=== PATIENT | female | born 1985 | race African-American/Black ===

== ENCOUNTER 2016-11-26 11:50 | Emergency (ER) | payer MEDICAID ==
[~2016-11-26] VITALS: Ht 157.5 cm; Wt 150.0 kg
[2016-11-26] MEDS ORDERED: ALBU18HF2 IH (12:04)
[2016-11-26] MEDS ORDERED: IPRATROPIUM BROMIDE (0.02%) 0.5MG/2.5ML NEB HHN STA (14:04)
[2016-11-26] MEDS ORDERED: PREDNISONE 20MG TABLET PO STA (14:04)
[2016-11-26] MEDS ORDERED: ALBUTEROL (0.083%) 2.5MG/3ML NEB HHN STA (14:04)
[2016-11-26 15:16] LABS: HCG SCREEN NEGATIVE
[2016-11-26 16:42] VITALS: BP 162/112
== END 2016-11-26 17:00 | disposition home or self-care (01) ==
LOC: ER 14:02
DX: J45.909 Unspecified asthma, uncomplicated (principal); Z91.018 Allergy to other foods; Z88.8 Allergy status to other drugs, medicaments and biological substances
CPT/HCPCS: 71010; 84703; 94640; 99285; J7512; J7611; Z7610

== ENCOUNTER 2017-01-19 07:16 | Emergency (ER) | payer MEDICAID ==
[~2017-01-19] VITALS: Ht 157.5 cm; Wt 145.0 kg
[~2017-01-19 07:16] MED LIST: ALBU18HF2 IH
[2017-01-19] MEDS ORDERED: BENA20TA3 PO (07:36)
[2017-01-19] MEDS ORDERED: METHOCARBAMOL 500MG TABLET PO ONE (08:00)
[2017-01-19] MEDS ORDERED: HYDROCODONE/ACETAMINOPHEN 5/325MG TABLET PO ONE (08:00)
[2017-01-19 08:28] VITALS: BP 135/76
[2017-01-19 09:40] LABS: CLARITY URINE CLOUDY (CLEAR); COLOR URINE YELLOW (YELLOW); GLUCOSE URINE NEGATIVE (NEGATIVE); KETONES URINE NEGATIVE (NEGATIVE); LEUKOCYTE ESTERASE URINE NEGATIVE (NEGATIVE); NITRITE URINE NEGATIVE (NEGATIVE); OCCULT BLOOD URINE NEGATIVE (NEGATIVE); PROTEIN URINE NEGATIVE (NEGATIVE); SPECIFIC GRAVITY URINE 1.025 (1.005-1.030); UROBILINOGEN URINE 0.2 E.U./dL (0.2-1.0)
== END 2017-01-19 10:06 | disposition home or self-care (01) ==
LOC: ER 07:37
DX: M54.9 Dorsalgia, unspecified (principal); F41.9 Anxiety disorder, unspecified; I10 Essential (primary) hypertension; Z91.018 Allergy to other foods
CPT/HCPCS: 81001; 81025; 99283; Z7610

== ENCOUNTER 2017-01-27 15:13 | Emergency (ER) | payer MEDICAID ==
[~2017-01-27] VITALS: Ht 157.5 cm; Wt 136.0 kg
[~2017-01-27 15:13] MED LIST changes: +BENA20TA3 PO
[2017-01-27] MEDS ORDERED: ACETAMINOPHEN 325MG TABLET PO ONE (16:15)
[2017-01-27 16:59] LABS: CLARITY URINE CLEAR (CLEAR); COLOR URINE YELLOW (YELLOW); GLUCOSE URINE NEGATIVE (NEGATIVE); KETONES URINE TRACE (NEGATIVE); LEUKOCYTE ESTERASE URINE NEGATIVE (NEGATIVE); NITRITE URINE NEGATIVE (NEGATIVE); OCCULT BLOOD URINE NEGATIVE (NEGATIVE); PROTEIN URINE NEGATIVE (NEGATIVE); SPECIFIC GRAVITY URINE 1.023 (1.005-1.030); UROBILINOGEN URINE 0.2 E.U./dL (0.2-1.0)
[2017-01-27] MEDS ORDERED: IBUPROFEN 600MG TABLET PO ONE (17:30)
[2017-01-27 17:37] VITALS: BP 129/82
== END 2017-01-27 17:50 | disposition home or self-care (01) ==
LOC: ER 16:05
DX: M54.5 Low back pain (principal); I10 Essential (primary) hypertension; J45.909 Unspecified asthma, uncomplicated; G89.29 Other chronic pain; Z91.018 Allergy to other foods
CPT/HCPCS: 81003; 81025; 99283

== ENCOUNTER 2017-03-05 08:54 | Emergency (ER) | payer MEDICAID ==
[~2017-03-05] VITALS: Ht 157.5 cm; Wt 141.0 kg
[2017-03-05] MEDS ORDERED: KETOROLAC 60MG/2ML VIAL IM STA (12:43)
[2017-03-05] MEDS ORDERED: BACITRACIN ZINC OINT UDPKT TOP ONE (12:45)
[2017-03-05] MEDS ORDERED: LIDOCAINE HCL 1% 20ML VIAL (Pyxis) INJ MC ONE (12:45)
[2017-03-05 14:26] LABS: CLARITY URINE CLEAR (CLEAR); COLOR URINE YELLOW (YELLOW); KETONES URINE NEGATIVE (NEGATIVE); LEUKOCYTE ESTERASE URINE NEGATIVE (NEGATIVE); NITRITE URINE NEGATIVE (NEGATIVE); OCCULT BLOOD URINE NEGATIVE (NEGATIVE); PROTEIN URINE NEGATIVE (NEGATIVE); SPECIFIC GRAVITY URINE 1.022 (1.005-1.030); UROBILINOGEN URINE 0.2 E.U./dL (0.2-1.0)
[2017-03-05 15:30] VITALS: BP 130/80
== END 2017-03-05 16:08 | disposition home or self-care (01) ==
LOC: ER 09:40
DX: L02.411 Cutaneous abscess of right axilla (principal); I10 Essential (primary) hypertension; J45.909 Unspecified asthma, uncomplicated; Z91.018 Allergy to other foods; Z88.8 Allergy status to other drugs, medicaments and biological substances
CPT/HCPCS: 10060; 81003; 81025; 96372; 99283; J1885; J3490; Z7610

== ENCOUNTER 2017-03-08 16:21 | Emergency (ER) | payer MEDICAID ==
[~2017-03-08] VITALS: Ht 157.5 cm; Wt 136.0 kg
[2017-03-08 16:57] VITALS: BP 125/74
== END 2017-03-08 20:39 | disposition home or self-care (01) ==
LOC: ER 16:21
DX: Z48.817 Encounter for surgical aftercare following surgery on the skin and subcutaneous tissue (principal); J45.909 Unspecified asthma, uncomplicated; I10 Essential (primary) hypertension; Z91.018 Allergy to other foods
CPT/HCPCS: 99283